=== PATIENT | female | born 1960 | race Caucasian/White ===

== ENCOUNTER 2019-07-28 09:30 | Inpatient (IN) ==
[2019-07-28] MEDS ORDERED: Morphine Sulfate 2 MG/ML SYRINGE IVP ONE (10:16)
[2019-07-28 10:32] LABS: Basophils % 0.3 %; Hematocrit 29.2 % (35.3-44.9); Hemoglobin 9.2 g/dL (11.5-15.4); Immature Granulocytes % 0.5 % (0-4); Lymphocytes # 0.6 K/mcL (0.6-4.6); Lymphocytes % 10.7 %; Mean Corpuscular HGB Conc 31.5 g/dL (31.6-35.5); Mean Corpuscular Hemoglobin 32.3 pg (28.0-33.3); Mean Corpuscular Volume 102.5 fL (83.0-100.0); Monocytes # 0.4 K/mcL (0.0-1.3); Monocytes % 6.6 %; Neutrophils # 4.8 K/mcL (1.6-8.9); Platelet Count 159 K/mcL (140-400); Red Blood Count 2.85 M/mcL (3.82-4.97); Red Cell Distribution Width 14.6 % (11.5-14.5); Segmented Neutrophils % 81.9 %; White Blood Count 5.9 K/mcL (4.3-11.1)
[2019-07-28 10:38] LABS: INR 0.9; Prothrombin Time 10.7 Seconds (9.4-12.1)
[2019-07-28 10:41] LABS: Activated Partial Thrombo Time 29.5 Seconds (26.0-36.0)
[2019-07-28 10:45] LABS: BUN/Creatinine Ratio 27 (6-26); Blood Urea Nitrogen 16 mg/dL (8-23); Calcium 8.6 mg/dL (8.6-10.3); Carbon Dioxide 19 mEq/L (23-29); Chloride 97 mEq/L (98-107); Glucose 128 mg/dL (70-105); Osmolality,Calculated 293 (280-300); Potassium 3.4 mEq/L (3.5-5.1); Sodium 140 mEq/L (136-145); eGFR For African Americans > 60 (> 60); eGFR For Non-African Americans > 60 (> 60)
[2019-07-28] MEDS ORDERED: *HR* HYDROcodone/Acet 5/325 mg TABLET PO PRN (10:47)
[2019-07-28] MEDS ORDERED: Naloxone 0.4 MG/ML INJ IVP PRN (10:47)
[2019-07-28] MEDS ORDERED: *HR* LORazepam 2 MG/ML VIAL IVP PRN ×2 (10:50→10:52)
[2019-07-28 11:09] LABS: Amylase 45 Units/L (29-103); Ethanol 116 mg/dL (Less than 10); Lipase 23 Units/L (11-82)
[2019-07-28 11:10] LABS: Troponin I < 0.03 ng/mL (< 0.04)
[2019-07-28 12:58] LABS: Amphetamine Screen,Urine Negative ng/mL (Cutoff=1000); Barbiturate Screen,Urine Negative ng/mL (Cutoff=200); Benzodiazepines Screen,Urine Negative ng/mL (Cutoff=200); Cannabinoid Screen,Urine Negative ng/mL (Cutoff = 50); Cocaine Screen,Urine Negative ng/mL (Cutoff= 300); Opiate Screen,Urine Positive ng/mL (Cutoff=300); Phencyclidine Screen,Urine Negative ng/mL (Cutoff=25)
[2019-07-28] MEDS: Metoprolol XL (24 HR) Succ 50 MG TAB.ER.24H PO SCH (13:50)
[2019-07-28] MEDS: *HR* Heparin 5,000 UNIT/ML VIAL SQ SCH ×2 (13:51→20:55)
[2019-07-28] MEDS: *HR* OxyCODONE/APAP 5/325 TABLET PO PRN ×2 (17:18→23:55)
[2019-07-28] MEDS: Nicotine 14 MG PATCH.TD24 TD SCH (20:54)
[2019-07-28] MEDS: levETIRAcetam 250 MG TABLET PO SCH (20:55)
[2019-07-29] MEDS: *HR* Heparin 5,000 UNIT/ML VIAL SQ SCH ×3 (01:09→20:10)
[2019-07-29 02:29] LABS: Basophils % 0.3 %; Hematocrit 27.8 % (35.3-44.9); Immature Granulocytes % 0.6 % (0-4); Lymphocytes # 1.2 K/mcL (0.6-4.6); Lymphocytes % 15.1 %; Mean Corpuscular HGB Conc 32.4 g/dL (31.6-35.5); Mean Corpuscular Hemoglobin 32.3 pg (28.0-33.3); Mean Corpuscular Volume 99.6 fL (83.0-100.0); Mean Platelet Volume 9.9 fL (9.4-12.4); Monocytes # 0.8 K/mcL (0.0-1.3); Monocytes % 9.8 %; Neutrophils # 5.7 K/mcL (1.6-8.9); Platelet Count 147 K/mcL (140-400); Red Blood Count 2.79 M/mcL (3.82-4.97); Red Cell Distribution Width 14.4 % (11.5-14.5); Segmented Neutrophils % 74.2 %; White Blood Count 7.7 K/mcL (4.3-11.1)
[2019-07-29 02:36] LABS: BUN/Creatinine Ratio 28 (6-26); Blood Urea Nitrogen 14 mg/dL (8-23); Calcium 8.5 mg/dL (8.6-10.3); Carbon Dioxide 28 mEq/L (23-29); Chloride 93 mEq/L (98-107); Glucose 149 mg/dL (70-105); Magnesium 1.3 mg/dL (1.6-2.6); Osmolality,Calculated 281 (280-300); Phosphorous 2.7 mg/dL (2.7-4.5); Potassium 3.7 mEq/L (3.5-5.1); Sodium 134 mEq/L (136-145); eGFR For African Americans > 60 (> 60); eGFR For Non-African Americans > 60 (> 60)
[2019-07-29] MEDS: *HR* OxyCODONE/APAP 5/325 TABLET PO PRN (06:06)
[2019-07-29] MEDS: *HR* LORazepam 2 MG/ML VIAL IVP PRN ×4 (07:05→23:54)
[2019-07-29] MEDS: Metoprolol XL (24 HR) Succ 50 MG TAB.ER.24H PO SCH (08:38)
[2019-07-29] MEDS ORDERED: *HR* Propofol 200 MG/20 ML VIAL IVP ONE (08:47)
[2019-07-29] MEDS ORDERED: *HR* Midazolam HCl 2 MG/2 ML VIAL ONE (08:47)
[2019-07-29] MEDS ORDERED: *HR* FentaNYL (PF) 100 MCG/2 ML VIAL ONE (08:47)
[2019-07-29] MEDS ORDERED: Ondansetron 4 MG/2 ML VIAL ONE (08:49)
[2019-07-29] MEDS ORDERED: *HR* Succinylcholine 200 MG/10 ML VIAL IVP ONE (08:49)
[2019-07-29] MEDS ORDERED: Dexamethasone 4 MG/ML VIAL ONE (08:49)
[2019-07-29] MEDS ORDERED: *HR* Rocuronium Bromide 50 MG/5 ML VIAL ONE (08:49)
[2019-07-29] MEDS ORDERED: Lidocaine -MPF 4% 5 ML AMPUL ONE (08:49)
[2019-07-29] MEDS ORDERED: Lidocaine -MPF 2% 2 ML VIAL ONE (08:49)
[2019-07-29] MEDS ORDERED: NON-FORMULARY MEDICATION 1 EACH EACH (Umeclidinium Brm/Vilanterol Tr [Anoro Ellipta 62.5-2 IH PRN (08:50)
[2019-07-29] MEDS ORDERED: Folic Acid 1 MG TABLET PO SCH (09:00)
[2019-07-29] MEDS ORDERED: Thiamine (B-1) 100 MG TABLET PO SCH (09:00)
[2019-07-29] MEDS ORDERED: Vitamin B Complex/Vit C/Vit E 1 EACH TABLET PO SCH (09:00)
[2019-07-29] MEDS ORDERED: amLODIPine 5 MG TABLET PO SCH (09:00)
[2019-07-29] MEDS: Nicotine 14 MG PATCH.TD24 TD SCH (09:07)
[2019-07-29] MEDS: levETIRAcetam 250 MG TABLET PO SCH ×2 (09:07→20:10)
[2019-07-29] MEDS ORDERED: *HR* OxyCODONE Immed Rel 5 MG TABLET PO PRN (09:40)
[2019-07-29] MEDS ORDERED: Ondansetron 4 MG/2 ML VIAL IVP ONE ×2 (09:40→13:46)
[2019-07-29] MEDS ORDERED: *HR* HYDROmorphone PF 0.5 MG/0.5 ML SYRINGE IVP PRN (09:40)
[2019-07-29] MEDS ORDERED: ceFAZolin 2,000 MG in Water for inj. (sterile) 20 ML IVP ONE (09:48)
[2019-07-29] MEDS ORDERED: *HR* PHENYLEPHRINE 1,000 MCG/10 ML SYRINGE IVP ONE (09:55)
[2019-07-29] MEDS ORDERED: Tiotropium 18 MCG inhalation IH SCH (10:00)
[2019-07-29] MEDS ORDERED: *HR* Vasopressin 20 UNIT/ML VIAL ONE (10:04)
[2019-07-29 10:44] LABS: Albumin 3.9 g/dL (3.5-5.7); Alkaline Phosphatase 57 Units/L (34-104)
[2019-07-29 10:57] LABS: Thyroid Stimulating Hormone 1.602 mcIU/mL (0.340-5.600)
[2019-07-29] MEDS ORDERED: Naloxone 0.4 MG/ML INJ IVP PRN (13:46)
[2019-07-29] MEDS ORDERED: *HR* LORazepam 2 MG/ML VIAL IVP PRN (13:46)
[2019-07-29] MEDS ORDERED: Thiamine (B-1) 100 MG, Folic Acid 1 MG, MVI, adult with vitamin K 10 ML in 0.9 % Sodi... IVPB SCH ×3 (15:22→18:00)
[2019-07-29] MEDS: ceFAZolin 2,000 MG in 0.9 % Sodium Chloride 100 ML IVPB SCH (18:41)
[2019-07-29] MEDS: 0.9 % Sodium Chloride 1,000 ML IVC SCH (20:12)
[2019-07-30] MEDS: ceFAZolin 2,000 MG in 0.9 % Sodium Chloride 100 ML IVPB SCH (02:35)
[2019-07-30] MEDS: *HR* Heparin 5,000 UNIT/ML VIAL SQ SCH ×3 (06:02→22:11)
[2019-07-30] MEDS: 0.9 % Sodium Chloride 1,000 ML IVC SCH ×2 (06:03→13:37)
[2019-07-30] MEDS: Tiotropium 18 MCG inhalation IH SCH (07:35)
[2019-07-30 07:48] LABS: Hemoglobin 7.5 g/dL (11.5-15.4)
[2019-07-30 07:50] LABS: Hematocrit 24.6 % (35.3-44.9); Immature Platelets 10.4 % (1.1-6.1); Mean Corpuscular HGB Conc 30.5 g/dL (31.6-35.5); Mean Corpuscular Hemoglobin 31.6 pg (28.0-33.3); Mean Corpuscular Volume 103.8 fL (83.0-100.0); Mean Platelet Volume 10.9 fL (9.4-12.4); Red Blood Count 2.37 M/mcL (3.82-4.97); Red Cell Distribution Width 14.6 % (11.5-14.5); White Blood Count 7.6 K/mcL (4.3-11.1)
[2019-07-30 08:16] LABS: BUN/Creatinine Ratio 30 (6-26); Blood Urea Nitrogen 18 mg/dL (8-23); Calcium 8.2 mg/dL (8.6-10.3); Carbon Dioxide 30 mEq/L (23-29); Chloride 98 mEq/L (98-107); Glucose 90 mg/dL (70-105); Magnesium 2.3 mg/dL (1.6-2.6); Osmolality,Calculated 285 (280-300); Potassium 3.8 mEq/L (3.5-5.1); Sodium 137 mEq/L (136-145); eGFR For African Americans > 60 (> 60); eGFR For Non-African Americans > 60 (> 60)
[2019-07-30] MEDS: Nicotine 14 MG PATCH.TD24 TD SCH (09:00)
[2019-07-30] MEDS: levETIRAcetam 250 MG TABLET PO SCH ×2 (09:00→20:03)
[2019-07-30] MEDS: Metoprolol XL (24 HR) Succ 50 MG TAB.ER.24H PO SCH (09:00)
[2019-07-30] MEDS: *HR* OxyCODONE/APAP 5/325 TABLET PO PRN ×3 (09:00→22:11)
[2019-07-30] MEDS: Thiamine (B-1) 100 MG TABLET PO SCH (09:00)
[2019-07-30] MEDS: amLODIPine 5 MG TABLET PO SCH (09:01)
[2019-07-30] MEDS: Vitamin B Complex/Vit C/Vit E 1 EACH TABLET PO SCH (09:01)
[2019-07-30] MEDS: Folic Acid 1 MG TABLET PO SCH (09:19)
[2019-07-30] MEDS ORDERED: 0.9 % Sodium Chloride 250 ML IVC ONE (11:39)
[2019-07-30] MEDS: Cholecalciferol (D-3) 1,000 UNIT (25MCG) TABLET PO SCH (12:28)
[2019-07-31] MEDS: *HR* LORazepam 2 MG/ML VIAL IVP PRN ×3 (00:31→13:49)
[2019-07-31] MEDS ORDERED: Haloperidol Lactate 5 MG/ML VIAL IM ONE (03:00)
[2019-07-31] MEDS ORDERED: Haloperidol Lactate 5 MG/ML VIAL IVP ONE (03:07)
[2019-07-31] MEDS: *HR* Heparin 5,000 UNIT/ML VIAL SQ SCH ×3 (05:33→21:37)
[2019-07-31] MEDS: levETIRAcetam 250 MG TABLET PO SCH ×2 (07:46→21:35)
[2019-07-31] MEDS: Thiamine (B-1) 100 MG TABLET PO SCH (07:47)
[2019-07-31] MEDS: Vitamin B Complex/Vit C/Vit E 1 EACH TABLET PO SCH (07:47)
[2019-07-31] MEDS: amLODIPine 5 MG TABLET PO SCH (07:47)
[2019-07-31] MEDS: Cholecalciferol (D-3) 1,000 UNIT (25MCG) TABLET PO SCH (07:47)
[2019-07-31] MEDS: Nicotine 14 MG PATCH.TD24 TD SCH (07:47)
[2019-07-31] MEDS: Folic Acid 1 MG TABLET PO SCH (07:47)
[2019-07-31] MEDS: Metoprolol XL (24 HR) Succ 50 MG TAB.ER.24H PO SCH (07:47)
[2019-07-31 10:04] LABS: Basophils % 0.2 %; Eosinophils % 0.2 %; Hematocrit 27.3 % (35.3-44.9); Hemoglobin 8.8 g/dL (11.5-15.4); Lymphocytes % 16.3 %; Mean Corpuscular HGB Conc 32.2 g/dL (31.6-35.5); Mean Corpuscular Hemoglobin 32.1 pg (28.0-33.3); Mean Corpuscular Volume 99.6 fL (83.0-100.0); Mean Platelet Volume 9.4 fL (9.4-12.4); Monocytes # 0.7 K/mcL (0.0-1.3); Monocytes % 11.2 %; Neutrophils # 4.4 K/mcL (1.6-8.9); Nucleated Red Blood Cells 0.5 /100 WBC (0); Platelet Count 158 K/mcL (140-400); Red Blood Count 2.74 M/mcL (3.82-4.97); Red Cell Distribution Width 16.9 % (11.5-14.5); Segmented Neutrophils % 71.1 %; White Blood Count 6.2 K/mcL (4.3-11.1)
[2019-07-31 10:24] LABS: BUN/Creatinine Ratio 27 (6-26); Blood Urea Nitrogen 14 mg/dL (8-23); Calcium 8.7 mg/dL (8.6-10.3); Carbon Dioxide 29 mEq/L (23-29); Chloride 97 mEq/L (98-107); Creatine Kinase 699 Units/L (30-223); Glucose 87 mg/dL (70-105); Magnesium 1.6 mg/dL (1.6-2.6); Osmolality,Calculated 280 (280-300); Sodium 135 mEq/L (136-145); eGFR For African Americans > 60 (> 60); eGFR For Non-African Americans > 60 (> 60)
[2019-07-31] MEDS: *HR* OxyCODONE/APAP 5/325 TABLET PO PRN (14:02)
[2019-07-31] MEDS: Tiotropium 18 MCG inhalation IH SCH (15:34)
[2019-07-31] MEDS: Potassium Chloride Elixir 20 MEQ/15 ML UDC PO SCH ×2 (17:09→21:37)
[2019-07-31] MEDS ORDERED: Magnesium Oxide 400 MG TABLET PO ONE (18:32)
[2019-08-01 01:45] LABS: Hematocrit 28.5 % (35.3-44.9); Hemoglobin 8.9 g/dL (11.5-15.4)
[2019-08-01 02:06] LABS: BUN/Creatinine Ratio 27 (6-26); Blood Urea Nitrogen 12 mg/dL (8-23); Carbon Dioxide 29 mEq/L (23-29); Chloride 96 mEq/L (98-107); Glucose 103 mg/dL (70-105); Magnesium 1.4 mg/dL (1.6-2.6); Osmolality,Calculated 284 (280-300); Potassium 3.4 mEq/L (3.5-5.1); Sodium 137 mEq/L (136-145); eGFR For African Americans > 60 (> 60); eGFR For Non-African Americans > 60 (> 60)
[2019-08-01] MEDS: *HR* Heparin 5,000 UNIT/ML VIAL SQ SCH ×3 (06:31→22:54)
[2019-08-01] MEDS: Tiotropium 18 MCG inhalation IH SCH (07:51)
[2019-08-01] MEDS: Thiamine (B-1) 100 MG TABLET PO SCH (08:34)
[2019-08-01] MEDS: Vitamin B Complex/Vit C/Vit E 1 EACH TABLET PO SCH (08:34)
[2019-08-01] MEDS: levETIRAcetam 250 MG TABLET PO SCH ×2 (08:35→22:53)
[2019-08-01] MEDS: amLODIPine 5 MG TABLET PO SCH (08:35)
[2019-08-01] MEDS: Cholecalciferol (D-3) 1,000 UNIT (25MCG) TABLET PO SCH (08:35)
[2019-08-01] MEDS: Folic Acid 1 MG TABLET PO SCH (08:36)
[2019-08-01] MEDS: Metoprolol XL (24 HR) Succ 50 MG TAB.ER.24H PO SCH (08:36)
[2019-08-01] MEDS: Nicotine 14 MG PATCH.TD24 TD SCH (08:36)
[2019-08-01] MEDS: Potassium Chloride Elixir 20 MEQ/15 ML UDC PO SCH ×2 (10:23→14:35)
[2019-08-01] MEDS: *HR* OxyCODONE/APAP 5/325 TABLET PO PRN ×2 (10:46→18:47)
[2019-08-01] MEDS ORDERED: 0.9 % Sodium Chloride 1,000 ML IV ONE (11:53)
[2019-08-02] MEDS: *HR* OxyCODONE/APAP 5/325 TABLET PO PRN ×3 (02:48→16:35)
[2019-08-02] MEDS: *HR* Heparin 5,000 UNIT/ML VIAL SQ SCH ×3 (05:01→20:13)
[2019-08-02] MEDS: Tiotropium 18 MCG inhalation IH SCH (07:51)
[2019-08-02] MEDS: levETIRAcetam 250 MG TABLET PO SCH ×2 (08:16→20:12)
[2019-08-02] MEDS: Metoprolol XL (24 HR) Succ 50 MG TAB.ER.24H PO SCH (08:16)
[2019-08-02] MEDS: Vitamin B Complex/Vit C/Vit E 1 EACH TABLET PO SCH (08:16)
[2019-08-02] MEDS: Cholecalciferol (D-3) 1,000 UNIT (25MCG) TABLET PO SCH (08:16)
[2019-08-02] MEDS: Thiamine (B-1) 100 MG TABLET PO SCH (08:16)
[2019-08-02] MEDS: amLODIPine 5 MG TABLET PO SCH (08:16)
[2019-08-02] MEDS: Nicotine 14 MG PATCH.TD24 TD SCH (08:17)
[2019-08-02] MEDS: Folic Acid 1 MG TABLET PO SCH (08:17)
[2019-08-02 09:47] LABS: BUN/Creatinine Ratio 24 (6-26); Blood Urea Nitrogen 13 mg/dL (8-23); Calcium 9.1 mg/dL (8.6-10.3); Carbon Dioxide 30 mEq/L (23-29); Chloride 96 mEq/L (98-107); Glucose 157 mg/dL (70-105); Magnesium 1.5 mg/dL (1.6-2.6); Osmolality,Calculated 279 (280-300); Phosphorous 3.6 mg/dL (2.7-4.5); Potassium 3.9 mEq/L (3.5-5.1); Sodium 133 mEq/L (136-145); eGFR For African Americans > 60 (> 60); eGFR For Non-African Americans > 60 (> 60)
[2019-08-02] MEDS: Potassium Chloride Elixir 20 MEQ/15 ML UDC PO SCH ×2 (10:53→12:29)
[2019-08-02] MEDS: *HR* HYDROcodone/Acet 7.5/325 mg TABLET PO PRN (12:35)
[2019-08-02] MEDS: *HR* HYDROcodone/Acet 5/325 mg TABLET PO PRN (20:13)
[2019-08-03] MEDS: *HR* OxyCODONE/APAP 5/325 TABLET PO PRN ×3 (02:18→16:56)
[2019-08-03] MEDS: *HR* Heparin 5,000 UNIT/ML VIAL SQ SCH ×3 (05:18→19:46)
[2019-08-03 07:24] LABS: BUN/Creatinine Ratio 25 (6-26); Blood Urea Nitrogen 13 mg/dL (8-23); Carbon Dioxide 28 mEq/L (23-29); Chloride 98 mEq/L (98-107); Glucose 104 mg/dL (70-105); Magnesium 1.6 mg/dL (1.6-2.6); Osmolality,Calculated 276 (280-300); Potassium 3.8 mEq/L (3.5-5.1); Sodium 133 mEq/L (136-145); eGFR For African Americans > 60 (> 60); eGFR For Non-African Americans > 60 (> 60)
[2019-08-03] MEDS: Folic Acid 1 MG TABLET PO SCH (07:36)
[2019-08-03] MEDS: levETIRAcetam 250 MG TABLET PO SCH ×2 (07:36→19:46)
[2019-08-03] MEDS: amLODIPine 5 MG TABLET PO SCH (07:36)
[2019-08-03] MEDS: Nicotine 14 MG PATCH.TD24 TD SCH (07:36)
[2019-08-03] MEDS: Metoprolol XL (24 HR) Succ 50 MG TAB.ER.24H PO SCH (07:37)
[2019-08-03] MEDS: Thiamine (B-1) 100 MG TABLET PO SCH (07:37)
[2019-08-03] MEDS: Vitamin B Complex/Vit C/Vit E 1 EACH TABLET PO SCH (07:37)
[2019-08-03] MEDS: Cholecalciferol (D-3) 1,000 UNIT (25MCG) TABLET PO SCH (07:37)
[2019-08-03] MEDS: Tiotropium 18 MCG inhalation IH SCH (07:56)
[2019-08-03] MEDS: *HR* HYDROcodone/Acet 7.5/325 mg TABLET PO PRN (13:07)
[2019-08-03] MEDS: *HR* HYDROcodone/Acet 5/325 mg TABLET PO PRN (19:46)
[2019-08-04] MEDS: *HR* Heparin 5,000 UNIT/ML VIAL SQ SCH (05:24)
[2019-08-04] MEDS: Thiamine (B-1) 100 MG TABLET PO SCH (07:49)
[2019-08-04] MEDS: Vitamin B Complex/Vit C/Vit E 1 EACH TABLET PO SCH (07:49)
[2019-08-04] MEDS: Metoprolol XL (24 HR) Succ 50 MG TAB.ER.24H PO SCH (07:49)
[2019-08-04] MEDS: Folic Acid 1 MG TABLET PO SCH (07:49)
[2019-08-04] MEDS: levETIRAcetam 250 MG TABLET PO SCH (07:49)
[2019-08-04] MEDS: Cholecalciferol (D-3) 1,000 UNIT (25MCG) TABLET PO SCH (07:50)
[2019-08-04] MEDS: amLODIPine 5 MG TABLET PO SCH (07:50)
[2019-08-04] MEDS: Nicotine 14 MG PATCH.TD24 TD SCH (07:50)
[2019-08-04] MEDS: *HR* HYDROcodone/Acet 7.5/325 mg TABLET PO PRN (08:01)
[2019-08-04] MEDS: Tiotropium 18 MCG inhalation IH SCH (08:03)
[2019-08-04] MEDS ORDERED: Magnesium Oxide 400 MG TABLET PO ONE (08:23)
[2019-08-04 11:52] VITALS: BP 126/72
[2019-08-04] MEDS: *HR* HYDROcodone/Acet 5/325 mg TABLET PO PRN (13:24)
== END 2019-08-04 13:51 | DRG 481 ==
LOC: EMEROOARM 09:30 → 3NENU 09:30
PROVIDERS: ADMIT Internal Medicine; ATTEND Internal Medicine